=== PATIENT | male | born 1935 | race Caucasian/White ===

== ENCOUNTER → 2024-08-07 | Outpatient (CLI) | payer MEDICAID | END | disposition home or self-care (01) | LOC: LAB 14:23 | PROVIDERS: ATTEND Urology | DX: R97.20 Elevated prostate specific antigen [PSA] (principal) | CPT/HCPCS: 84153 ==

== ENCOUNTER 2024-09-20 22:43 | Inpatient (IN) | payer OTHER, MEDICAID ==
[~2024-09-20] VITALS: Ht 167.6 cm; Wt 67.7 kg
--- NOTE | 2024-09-20 23:25 | ED.PDOC ---
History of Present Illness HPI Comments 89-year-old male presents with a chief complaint of chest pain x onset 0600 this morning. Patient states that his pain is localized to his left ribcage area, non-radiating, describes as pressure, is intermittent in timing, and rates his pain a 4/10. Patient also notes elevated blood pressure at home during episodes of chest pain. Patient denies any injuries or trauma prior to onset of symptoms starting. Patient mentions that the pain comes and goes and is currently not present in triage. Patient denies SOB, nausea, vomiting, diaphoresis, or lightheadedness. No other symptoms or modifying factors present at this time. Patient states he has a history of coronary artery disease and has been having intermittent similar pain although less severe over the past 10 days. He saw his primary doctor 3 days ago and was referred for repeat coronary angiogram. Chief Complaint: Chest Pain Time Seen by MD: 23:16 Reviewed Notes: Medications, Allergies Allergies: Coded Allergies: No Known Drug Allergy (Verified Allergy, Unknown, 09/21/24) Information Source: Patient Mode of Arrival: Ambulatory Severity: Moderate Timing: Hours Duration: Since onset Prehospital treatment: None Past Medical History PAST MEDICAL HISTORY: CAD, HTN Surgical History: Appendectomy Family History Family History: Reviewed,noncontributory to illness Social History Smoker: Non-Smoker Alcohol: Denies ETOH Use Drugs: Denies Drug Use Lives In: Home Constitutional: denies: chills, diaphoresis, fatigue, fever, malaise, sweats, weakness, others EENTM: denies: blurred vision, double vision, ear bleeding, ear discharge, ear drainage, ear pain, ear ringing, eye pain, eye redness, hearing loss, mouth pain, mouth swelling, nasal discharge, nose bleeding, nose congestion, nose pain, photophobia, tearing, throat pain, throat swelling, voice changes, others Respiratory: denies: cough, hemoptysis, orthopnea, SOB at rest, shortness of breath, SOB with excertion, stridor, wheezing, others Cardiovascular: reports: chest pain; denies: dizzy spells, diaphoresis, Dyspnea on exertion, edema, irregular heart beat, left arm pain, lightheadedness, palpitations, PND, syncope, others Gastrointestinal: denies: abdomen distended, abdominal pain, blood streaked bowels, constipated, diarrhea, dysphagia, difficulty swallowing, hematemesis, melena, nausea, poor appetite, poor fluid intake, rectal bleeding, rectal pain, vomiting, others Genitourinary: denies: burning, dysuria, flank pain, frequency, hematuria, incontinence, penile discharge, penile sore, pain, testicle pain, testicle swelling, urgency, others Neurological: denies: dizziness, fainting, headache, left sided numbness, left sided weakness, numbness, paresthesia, pre-existing deficit, right sided numbness, right sided weakness, seizure, speech problems, tingling, tremors, weakness, others Musculoskeletal: denies: back pain, gout, joint pain, joint swelling, muscle pain, muscle stiffness, neck pain, others Integumetry: denies: bruises, change in color, change in hair/nails, dryness, laceration, lesions, lumps, rash, wounds, others Allergic/Immunocompromised: denies: Difficulty Healing, Frequent Infections, Hives, Itching, others Hematologic/Lymphatic: denies: anemia, blood clots, easy bleeding, easy bruising, swollen glands, others Endocrine: denies: excessive hunger, excessive sweating, excessive thirst, excessive urination, flushing, intolerance to cold, intolerance to heat, unexplained weight gain, unexplained weight loss, others Psychiatric: denies: anxiety, bipolar disorder, depression, hopeless, panic disorder, schizophrenia, sleepless, suicidal, others All Other Systems: Reviewed and Negative Physical Exam General Appearance: No Apparent Distress HEENT: Normal ENT Inspection Neck: Full Range of Motion, Normal Inspection Respiratory: Chest Non-Tender, Lungs Clear, No Accessory Muscle Use, No Respiratory Distress, Normal Breath Sounds Cardiovascular: No Edema, No JVD, Regular Rate/Rhythm Breast Exam: Deferred Gastrointestinal: Non Tender, Soft Genitalia: Deferred Pelvic: Deferred Rectal: Deferred Extremities: Normal inspection, Normal range of motion, Non-tender, No pedal edema Neurologic: Alert, No Motor Deficits, Normal Affect, Normal Mood, No Sensory Deficits Cerebellar Function: NOT DONE Reflexes: NOT DONE Skin: Dry, Normal Color, Warm Lymphatic: NOT DONE Was a procedure done? Was a procedure done?: No EKG EKG : Comments Sinus rhythm, rate 69, normal intervals, normal axis, normal QRS complex, nonspecific T change. Differential Dx Considerations may include: ACS, MD, chest wall pain, anxiety, PE, CHF, pneumonia, among others X-Ray, Labs, Meds, VS Vital Signs Date Time Temp Pulse Resp B/P (MAP) Pulse Ox O2 Delivery O2 Flow Rate FiO2 09/20/24 22:48 69 09/20/24 22:46 98.4 73 20 146/83 (104) 96 Lab Test 09/20/24 23:47 09/20/24 22:52 Range/Units Troponin I High Sensitivity 10 9 </=54 ng/L White Blood Count 4.8 4.4-10.8 10^3/uL Red Blood Count 4.45 L 4.5-5.90 10^6/uL Hemoglobin 14.0 13.5-17.5 g/dL Hematocrit 41.3 41.0-53.0 % Mean Corpuscular Volume 92.8 80.0-100.0 fL Mean Corpuscular Hemoglobin 31.4 28.0-32.0 pg Mean Corpuscular Hemoglobin Concent 33.9 32.0-36.0 g/dL Red Cell Distribution Width 13.3 11.8-14.3 % Platelet Count 112 L 140-450 10^3/uL Mean Platelet Volume 10.4 6.9-10.8 fL Neutrophils (%) (Auto) 54.3 37.0-80.0 % Lymphocytes (%) (Auto) 33.1 10.0-50.0 % Monocytes (%) (Auto) 10.4 0.0-12.0 % Eosinophils (%) (Auto) 1.7 0.0-7.0 % Basophils (%) (Auto) 0.5 0.0-2.0 % Neutrophils # (Auto) 2.6 1.6-8.6 10 ^3/uL Lymphocytes # (Auto) 1.6 0.4-5.4 10 ^3/uL Monocytes # (Auto) 0.5 0-1.3 10 ^3/uL Eosinophils # (Auto) 0.1 0-0.8 10 ^3/uL Basophils # (Auto) 0 0-0.2 10 ^3/uL Nucleated Red Blood Cells 0.1 % Prothrombin Time 11.9 H 9.3-11.8 sec Prothrombin Time INR 1.13 0.9-1.15 Activated Partial Thromboplast Time 26.8 24.5-34.5 SEC Sodium Level 141 136-145 mmol/L Potassium Level 4.1 3.5-5.1 mmol/L Chloride Level 107 98-107 mmol/L Carbon Dioxide Level 30 20-31 mmol/L Anion Gap 4 L 5-15 Blood Urea Nitrogen 29 H 9-23 mg/dL Creatinine 1.29 0.700-1.30 mg/dL Glomerular Filtration Rate Calc 53 >90 mL/min BUN/Creatinine Ratio 22.5 H 10.0-20.0 Serum Glucose 83 74-106 mg/dL Calcium Level 10.3 8.7-10.4 mg/dL B-Type Natriuretic Peptide 44.06 0-100 pg/mL X-Ray, Labs, Meds, VS Comment 89-year-old male with a history of hypertension and CAD complaining of chest pain Vitals remarkable for BP 146/83 Exam unremarkable EKG sinus rhythm, nonspecific T change Chest x-ray independently interpreted by me: cardiac silhouette normal size no infiltrate or effusion, normal mediastinal width, grossly normal bony thorax, no free air, no pneumothorax. CBC, basic metabolic panel, BNP and 2 serial troponins unremarkable for any abnormality of acute significance Patient treated with the following in the ED: Aspirin 325 mg p.o., nitro Dur 1 in to chest wall On re-evaluation, patient resting comfortably with stable vitals. Plan is to admit the patient for Cardiology evaluation and possible angiogram. Time of 1ST Reevaluation: 23:46 Reevaluation 1ST: Unchanged Time of 2ND Reevaluation: 02:22 Reevaluation 2ND: Improved Patient Education/Counseling: Diagnosis, Treatment, Prognosis Family Education/Counseling: No Family Present Departure 1 Departure Time of Disposition: 02:22 Impression: Primary Impression: Chest pain Qualified Codes: I20.89 - Other forms of angina pectoris Disposition: 09 ADMITTED INPATIENT Admit to: Tele Condition: Guarded Critical Care Note Critical Care Time?: No Stability Stability form required: No Heart Score Heart Score: Heart Score Response (Comments) Value History Moderate Suspicious 1 EKG Repolarization Disturb 1 Age >65 2 Risk Factors >3 or Hx ASHD 2 Troponin Normal limit 0 Total 6 I personally scribed for BINH FITCH MD ([email or web address]) on 09/20/24 at 23:25. Electronically submitted by Matt Harrison ([email or web address]). BINH FITCH MD Sep 20, 2024 23:25
[2024-09-20 23:26] LABS: Basophils # (auto) 0 10 ^3/uL (0-0.2); Basophils % (auto) 0.5 % (0.0-2.0); Eosinophils # (auto) 0.1 10 ^3/uL (0-0.8); Eosinophils % (auto) 1.7 % (0.0-7.0); Hematocrit 41.3 % (41.0-53.0); Lymphocytes # (auto) 1.6 10 ^3/uL (0.4-5.4); Lymphocytes % (auto) 33.1 % (10.0-50.0); Mean Corpuscular Hemoglobin 31.4 pg (28.0-32.0); Mean Corpuscular Hgb Conc. 33.9 g/dL (32.0-36.0); Mean Corpuscular Volume 92.8 fL (80.0-100.0); Monocytes # (auto) 0.5 10 ^3/uL (0-1.3); Monocytes % (auto) 10.4 % (0.0-12.0); Neutrophils # (auto) 2.6 10 ^3/uL (1.6-8.6); Neutrophils % (auto) 54.3 % (37.0-80.0); Nucleated Red Blood Cells % 0.1 %; Platelet Count (auto) 112 10^3/uL (140-450); Red Blood Cells 4.45 10^6/uL (4.5-5.90); Red Cell Distribution Width 13.3 % (11.8-14.3); White Blood Cell 4.8 10^3/uL (4.4-10.8)
[2024-09-20 23:35] LABS: Chloride 107 mmol/L (98-107); Potassium 4.1 mmol/L (3.5-5.1); Sodium 141 mmol/L (136-145)
[2024-09-20 23:36] LABS: Anion Gap 4 (5-15); Carbon Dioxide 30 mmol/L (20-31)
[2024-09-20 23:37] LABS: Calcium 10.3 mg/dL (8.7-10.4)
[2024-09-20 23:42] LABS: BUN/Creatinine Ratio 22.5 (10.0-20.0); Blood Urea Nitrogen 29 mg/dL (9-23); Glucose 83 mg/dL (74-106)
[2024-09-20 23:44] LABS: INR 1.13 (0.9-1.15); Partial Thromboplastin Time 26.8 SEC (24.5-34.5); Prothrombin Time 11.9 sec (9.3-11.8)
[2024-09-21 03:54] VITALS: BP 121/54; PULSE 60; RESP 16; TEMP 97.6; O2SAT 95
[2024-09-21] MEDS: ASPirin 81 mg TAB PO ONE (03:54)
[2024-09-21] MEDS: NITROGLYCERIN 2% OINT 1GM PKG TD ONE (03:54)
--- NOTE | 2024-09-21 04:12 | DVH ---
Examination: CXRP Clinical Indication:cp Comparison: None. Technique: Frontal radiograph of the chest was obtained. Findings: Patient is in slight rotation. Inhomogeneous radiopacities in left lower lung, suggestive of patchy consolidation. No pleural effusion on either side in current study. There is no pneumothorax. No evidence of cardiomegaly. No acute osseous abnormality is seen. Impression: Patchy consolidation in the left lower lung. Electronically Signed 09/21/2024 04:04 Hernan Salazar
[2024-09-21] MEDS ORDERED: NITROGLYCERIN 0.4 MG SL TAB SL PRN (04:30)
[2024-09-21] MEDS ORDERED: MORPHINE SULFATE INJ 2 MG/ml SYRG IV PRN (04:30)
[2024-09-21] MEDS ORDERED: ACETAMINOPHEN 325 MG TAB PO PRN (04:30)
[2024-09-21] MEDS ORDERED: ONDANSETRON HCL 4 MG/2 ML VIAL IV PRN (04:30)
--- NOTE | 2024-09-21 06:42 | DVHHP2 ---
History of Present Illness Reason for Visit: Chest pain History of Present Illness 89-year-old male presents for evaluation of chest pain. The patient reports a one day history of left sided sharp chest pain that is nonradiating distress it as pressure-like currently at 5/10 intensity. Denies nausea or vomiting. No shortness a breath. No other acute complaints reported. Past Medical History Dementia, hypertension Past Surgical History Appendectomy Family History Noncontributory Smoke: No ALCOHOL: none Drugs: None Lives: with Family Review of Systems Review of Systems Review of systems are currently negative otherwise addressed in HPI. Allergies: Coded Allergies: No Known Drug Allergy (Verified Allergy, Unknown, 09/21/24) Medications Current Medications Medications Dose Ordered Sig/[place] Route Start Time Stop Time Status Last Admin Dose Admin Memantine 5 mg Q12HR PO 09/21/24 10:00 Atorvastatin Calcium 10 mg HS PO 09/21/24 22:00 Aspirin 162 mg DAILY PO 09/21/24 10:00 Losartan Potassium 50 mg DAILY PO 09/21/24 10:00 Tamsulosin HCl 0.4 mg QPM PO 09/21/24 18:00 Donepezil HCl 5 mg HS PO 09/21/24 22:00 Ondansetron HCl 4 mg Q4HP PRN IV 09/21/24 04:30 Enoxaparin Sodium 40 mg DAILY SC 09/21/24 10:00 Acetaminophen 650 mg Q6HP PRN PO 09/21/24 04:30 Nitroglycerin 0.4 mg Q5MINP PRN SL 09/21/24 04:30 Morphine Sulfate 2 mg Q30M PRN IV 09/21/24 04:30 Exam Vital Signs Vital Signs Date Time Temp Pulse Resp B/P (MAP) Pulse Ox O2 Delivery O2 Flow Rate FiO2 09/21/24 03:54 97.6 60 16 121/54 (76) 95 97.6 09/21/24 03:54 Room Air* 0 21 Exam Gen: 89-year-old male in no apparent distress. Skin: Warm, dry, normal color and texture, no rash. HEENT: Normocephalic atraumatic, mucous membranes moist and pink. Neck: Cervical and supraclavicular nodes normal without enlargement, trachea is midline, thyroid gland is normal without masses. Pulmonary: Clear to auscultation and percussion bilaterally. Cardiac: Regular rate and rhythm. No murmur Abdomen: Soft, nontender, nondistended, bowel sounds present all 4 quadrants, no guarding, no rigidity, no organomegaly. Extremities: No cyanosis, clubbing, no edema Neuro: Cranial nerves II through XII grossly intact, normal affect and speech, no focal motor deficits. Labs/Xrays ORDERING PHYSICIAN: BINH FITCH MD PROCEDURE(s): CXRP - CHEST PORTABLE REASON: cp ORDER NUMBER(s): [id number], ACCESSION NUMBER(s): [id number] Examination: CXRP Clinical Indication:cp Comparison: None. Technique: Frontal radiograph of the chest was obtained. Findings: Patient is in slight rotation. Inhomogeneous radiopacities in left lower lung, suggestive of patchy consolidation. No pleural effusion on either side in current study. There is no pneumothorax. No evidence of cardiomegaly. No acute osseous abnormality is seen. Impression: Patchy consolidation in the left lower lung. Electronically Signed 09/21/2024 04:04 Hernan Salazar Labs Test 09/20/24 23:47 09/20/24 22:52 Range/Units Troponin I High Sensitivity 10 </=54 ng/L White Blood Count 4.8 4.4-10.8 10^3/uL Red Blood Count 4.45 L 4.5-5.90 10^6/uL Hemoglobin 14.0 13.5-17.5 g/dL Hematocrit 41.3 41.0-53.0 % Mean Corpuscular Volume 92.8 80.0-100.0 fL Mean Corpuscular Hemoglobin 31.4 28.0-32.0 pg Mean Corpuscular Hemoglobin Concent 33.9 32.0-36.0 g/dL Red Cell Distribution Width 13.3 11.8-14.3 % Platelet Count 112 L 140-450 10^3/uL Mean Platelet Volume 10.4 6.9-10.8 fL Neutrophils (%) (Auto) 54.3 37.0-80.0 % Lymphocytes (%) (Auto) 33.1 10.0-50.0 % Monocytes (%) (Auto) 10.4 0.0-12.0 % Eosinophils (%) (Auto) 1.7 0.0-7.0 % Basophils (%) (Auto) 0.5 0.0-2.0 % Neutrophils # (Auto) 2.6 1.6-8.6 10 ^3/uL Lymphocytes # (Auto) 1.6 0.4-5.4 10 ^3/uL Monocytes # (Auto) 0.5 0-1.3 10 ^3/uL Eosinophils # (Auto) 0.1 0-0.8 10 ^3/uL Basophils # (Auto) 0 0-0.2 10 ^3/uL Nucleated Red Blood Cells 0.1 % Prothrombin Time 11.9 H 9.3-11.8 sec Prothrombin Time INR 1.13 0.9-1.15 Activated Partial Thromboplast Time 26.8 24.5-34.5 SEC Sodium Level 141 136-145 mmol/L Potassium Level 4.1 3.5-5.1 mmol/L Chloride Level 107 98-107 mmol/L Carbon Dioxide Level 30 20-31 mmol/L Anion Gap 4 L 5-15 Blood Urea Nitrogen 29 H 9-23 mg/dL Creatinine 1.29 0.700-1.30 mg/dL Glomerular Filtration Rate Calc 53 >90 mL/min BUN/Creatinine Ratio 22.5 H 10.0-20.0 Serum Glucose 83 74-106 mg/dL Calcium Level 10.3 8.7-10.4 mg/dL B-Type Natriuretic Peptide 44.06 0-100 pg/mL Assessment/Plan Assessment/Plan Assessment Chest pain rule out ACS Hypertension CAD Dementia Plan Admit the patient to telemetry to the hospitalist ACS protocol Resume home medications Continue treatment per orders. Plan discussed with: Patient My Orders Orders - VERONICA LEAL Procedure Category Date Status Time Memantine Tablet PHA 09/21/24 In Process (Namenda Tablet) 10:00 Atorvastatin (Lipitor) PHA 09/21/24 In Process 22:00 Aspirin Tablet PHA 09/21/24 In Process 10:00 Losartan Tablet PHA 09/21/24 In Process (Cozaar Tablet) 10:00 Tamsulosin PHA 09/21/24 In Process Hydrochloride (Flomax) 18:00 Donepezil Tablet PHA 09/21/24 In Process (Aricept Tablet) 22:00 * Cardiology Consult CONS 09/21/24 Transmitted 04:21 Admit ADMIT 09/21/24 Transmitted 04:21 Ondansetron Hcl PHA 09/21/24 In Process (Zofran) 04:30 Enoxaparin Sodium [facility] 09/21/24 In Process (Lovenox) 10:00 Echo 2d Mode Cardiac US 09/21/24 Logged DOP 04:21 Condition: Fair [facility] 09/21/24 In Process 04:21 Acetaminophen Tablet [facility] 09/21/24 In Process (Tylenol Tablet) 04:30 Bedrest With Bathroom [facility] 09/21/24 In Process Privileg 04:21 Nitroglycerin [facility] 09/21/24 In Process Sublingual (Ntrostat 04:30 Morphine Sulfate [facility] 09/21/24 In Process Injection 04:30 Stat Ekg For Chest [facility] 09/21/24 In Process Pain 04:21 Notify Md Of Changes [facility] 09/21/24 In Process From Base 04:21 Poultry Scalder For [facility] 09/21/24 In Process 24 Hours 04:21 Emergency Dysrhythmia [facility] 09/21/24 In Process Protocol 04:21 Rhythm Strips Once [facility] 09/21/24 In Process Every Shift 04:21 Oxygen By Nasal RT 09/21/24 Transmitted Cannula 04:21 Date of Service: Sep 21, 2024 Billing Provider: VERONICA LEAL Common Visit Codes: [id number] INP/OBS CARE (HIGH) VERONICA LEAL Sep 21, 2024 06:42
[2024-09-21] MEDS ORDERED: LOSARTAN POTASSIUM 50 MG TAB PO SCH (10:00)
[2024-09-21] MEDS ORDERED: ENOXAPARIN SOD 40 MG/0.4 ML SYRINGE SC SCH (10:00)
[2024-09-21] MEDS ORDERED: ASPirin 81 mg TAB PO SCH (10:00)
[2024-09-21] MEDS ORDERED: MEMANTINE HCL 5 MG TAB PO SCH (10:00)
--- NOTE | 2024-09-21 13:25 | ECG ---
[facility] Test Date: 2024-09-20 Test Time: 22:48:46 Pat Name: BREA GUIDRY Department: ER Room: Gender: M Pipe Connector: MARK ANTHONY : 1935 Requested By: BINH ALANIS Order Number: [id number] Reading MD: Measurements Intervals [place] Rate: 69 P: 27 W[place]: 163 QRS: 55 QRSD: 88 T: 71 QT: 406 QTc: 435 Interpretive Statements Sinus rhythm Baseline wander in lead(s) I,II,aVR Please click the below link to view image of tracing.
[2024-09-21] MEDS ORDERED: TAMSULOSIN HYDROCHLORIDE 0.4 MG CAP PO SCH (18:00)
[2024-09-21] MEDS ORDERED: DONEPEZIL HYDROCHLORIDE 5 MG TAB PO SCH (22:00)
[2024-09-21] MEDS ORDERED: ATORVASTATIN 20 MG TAB PO SCH (22:00)
== END 2024-09-21 06:30 | disposition left against medical advice (07) | DRG 311 ==
LOC: ER 22:43 → TELE 09-21 04:24 → ER 09-21 04:31 → TELE 09-21 06:30
PROVIDERS: ADMIT Nurse Practitioner; ATTEND Family Medicine
DX: I24.9 Acute ischemic heart disease, unspecified (principal); I10 Essential (primary) hypertension; F03.90 Unspecified dementia, unspecified severity, without behavioral disturbance, psychotic disturbance, mood disturbance, and anxiety; I25.10 Atherosclerotic heart disease of native coronary artery without angina pectoris; Z53.29 Procedure and treatment not carried out because of patient's decision for other reasons; Z90.49 Acquired absence of other specified parts of digestive tract
CPT/HCPCS: 36415; 80048; 83880; 84484; 85025; 85610; 85730; G0378